=== PATIENT | female | born 1950 | race Two or more races ===

== ENCOUNTER 2025-04-12 17:26 | Emergency (ER) | payer MEDICAID, MEDICARE, OTHER ==
[~2025-04-12] VITALS: Ht 152.4 cm; Wt 75.5 kg
[2025-04-12 18:29] LABS: Hemoglobin 7.9 g/dL (12.2-16.2); Mean Corpuscular Hemoglobin 30.6 pg (28.0-32.0)
[2025-04-12 18:32] LABS: Hematocrit 24.2 % (36.0-46.0); Mean Corpuscular Volume 93.4 fL (80.0-100.0); Nucleated Red Blood Cells % 0.2 %
[2025-04-12 18:42] LABS: Alanine Aminotransferase 15 U/L (7-40); Albumin 4.4 g/dL (3.2-4.8); Alkaline Phosphatase 69 U/L (46-116); Anion Gap 11 (5-15); BUN/Creatinine Ratio 20.6 (10.0-20.0); Calcium 9.6 mg/dL (8.7-10.4); Potassium 4.7 mmol/L (3.5-5.1); Total Protein 7.1 g/dL (5.7-8.2)
[2025-04-12 18:46] LABS: INR 0.99 (0.9-1.15); Partial Thromboplastin Time 25.6 SEC (24.5-34.5); Prothrombin Time 10.5 sec (9.3-11.8)
[2025-04-12 18:47] LABS: Bilirubin, Total 0.3 mg/dL (0.2-1.0); Blood Urea Nitrogen 35 mg/dL (9-23); Carbon Dioxide 31 mmol/L (20-31); Chloride 90 mmol/L (98-107); Sodium 132 mmol/L (136-145)
[2025-04-12 18:48] LABS: Glucose 429 mg/dL (74-106)
--- NOTE | 2025-04-12 19:09 | ED.PDOC ---
Eye-HPI HPI Comments HPI: Poor Historian. 74-YEAR-OLD FEMALE BROUGHT IN TO THE HOSPITAL FOR EVALUATION OF RIGHT NOSTRIL BLEED since this past Friday.. PATIENT HAS BEEN SEEN AND EVALUATED FOR THIS proximally 2-3 weeks ago at a different hospital in [facility]. Patient is visiting from [place]. She has no PCP locally. Patient's bleeding has stopped. The patient is not on blood thinners. Patient family states she already had a CT scan of her head which found some sinus findings and was referred to ENT. Patient is scheduled to see the doctor in May. Patient was seen at [facility] in [facility]. Past Medical History: Hypertension, diabetes, hyperlipidemia. Past Surgical History: Hysterectomy REVIEW OF SYSTEMS: CONSTITUTIONAL: Denies acute: fever, diaphoresis, chills, generalized weakness. HEAD: Denies acute: photophobia Eyes: Denies acute: Double vision, vision loss, eye pain, eye discharge. EARS: Denies acute: tinnitus, hearing loss, ear discharge, ear pain, THROAT: Denies acute: sore throat, swelling, difficulty swallowing , pain with swallowing, change in voice. NECK: Denies acute: neck pain, neck swelling, stiff neck. HEART: Denies acute : chest pain, palpitations, LUNGS: Denies acute: SOB, wheezing, cough, hemoptysis ABDOMEN: Denies acute: abdominal pain, Nausea, Vomiting, diarrhea, melena , hematemesis, hematochezia SKIN: Denies acute: rash, redness, lesions, itchiness. EXTREMITIES: Denies acute: calf pain, numbness, tingling, weakness, denies pain in extremity. Denies acute: Low back pain. Neuro: Denies acute: focal neurological deficit, motor or sensory focal neurological deficit, tremors, seizure like activity, confusion, dizziness, change in mental status, loss of bowel or bladder function, cauda equina like symptoms. : Denies acute: dysuria, hematuria, flank pain, increase in urinary frequency. PSYCH: Denies acute: hallucination, suicidal ideation, homicidal ideation. FEMALE: Denies acute: abnormal vaginal bleeding, foul odor, unusual discharge. PHYSICAL EXAM: General: ---no-----acute distress, awake and alert. Head: normocephalic, atraumatic. No raccoon's eyes, no nixon sign. Neck: supple, trachea is midline, no swelling. Throat: Normal phonation. No evidence of bleeding the posterior pharynx. No active bleeding in the nose. Eyes:, no erythema, no purulent discharge, no proptosis, no icterus. Heart: regular rate, regular rhythm, no significant murmur appreciated. Lungs: no apparent respiratory distress, Able to speak in full sentences. No wheezing, no rhonchi, no crackles. No stridors Clear to auscultation bilaterally. Abdomen: non tender to palpation, non distended, soft, no guarding, no rebound, + bowel sounds. Neuro: Awake, Alert, oriented to name, self, situation, follows commands GCS=15. Speech is normal. Skin: no petechia, no purpura, no cyanosis, non-pale, not jaundice. Lower extremities: --no - Pitting edema no deformity, no focal swelling, no calf TTP. Makes eye contact. moves all four extremities. Face: no apparent facial droop. ED COURSE: DISCLAIMER: This medical document was created using an electronic medical record system with voice recognition software and computerized dictation system. Although this document has been carefully reviewed, there might still be some phonetic and typographical errors. Occasional wrong-word or "sound-alike" substitutions may have occurred due to the inherent limitations of voice recognition software. These areas are purely typographical due to imperfections of the software programs and do not reflect any compromise in the patient's medical care. Please read the chart carefully and recognize, using context, where these substitutions have occurred. Chief Complaint: Nose Bleed Time Seen by MD: 17:44 Reviewed Notes: Allergies Allergies: Coded Allergies: NO KNOWN ALLERGIES (Unverified , 04/12/25) Information Source: Patient, Relative Mode of Arrival: Ambulatory X-Ray, Labs, Meds, VS Vital Signs Date Time Temp Pulse Resp B/P (MAP) Pulse Ox O2 Delivery O2 Flow Rate FiO2 04/12/25 20:22 70 22 96 Room Air* 0 21 04/12/25 20:15 98.3 70 18 120/48 (72) 96 98.3 04/12/25 19:32 148/38 04/12/25 19:08 18 94 Room Air 0 04/12/25 19:03 98.4 73 20 148/38 (74) 94 98.4 04/12/25 17:36 98.3 79 16 163/77 92 98.3 Lab Test 04/12/25 20:30 04/12/25 19:24 04/12/25 19:17 04/12/25 18:08 Range/Units Hemoglobin Pending 7.9 L 12.2-16.2 g/dL Hematocrit Pending 24.2 L 36.0-46.0 % POC Glucose 407 *H 70-106 mg/dl Troponin I High Sensitivity 5 5 </=34 ng/L White Blood Count 8.0 4.4-10.8 10^3/uL Red Blood Count 2.59 L 4.0-5.20 10^6/uL Mean Corpuscular Volume 93.4 80.0-100.0 fL Mean Corpuscular Hemoglobin 30.6 28.0-32.0 pg Mean Corpuscular Hemoglobin Concent 32.8 32.0-36.0 g/dL Red Cell Distribution Width 14.8 H 11.8-14.3 % Platelet Count 335 140-450 10^3/uL Mean Platelet Volume 9.2 6.9-10.8 fL Neutrophils (%) (Auto) 66.5 37.0-80.0 % Lymphocytes (%) (Auto) 25.1 10.0-50.0 % Monocytes (%) (Auto) 4.9 0.0-12.0 % Eosinophils (%) (Auto) 2.5 0.0-7.0 % Basophils (%) (Auto) 1.0 0.0-2.0 % Neutrophils # (Auto) 5.3 1.6-8.6 10 ^3/uL Lymphocytes # (Auto) 2.0 0.4-5.4 10 ^3/uL Monocytes # (Auto) 0.4 0-1.3 10 ^3/uL Eosinophils # (Auto) 0.2 0-0.8 10 ^3/uL Basophils # (Auto) 0.1 0-0.2 10 ^3/uL Nucleated Red Blood Cells 0.2 % Prothrombin Time 10.5 9.3-11.8 sec Prothrombin Time INR 0.99 0.9-1.15 Activated Partial Thromboplast Time 25.6 24.5-34.5 SEC Sodium Level 132 L 136-145 mmol/L Potassium Level 4.7 3.5-5.1 mmol/L Chloride Level 90 L 98-107 mmol/L Carbon Dioxide Level 31 20-31 mmol/L Anion Gap 11 5-15 Blood Urea Nitrogen 35 H 9-23 mg/dL Creatinine 1.70 H 0.550-1.02 mg/dL Glomerular Filtration Rate Calc 31 >90 mL/min BUN/Creatinine Ratio 20.6 H 10.0-20.0 Serum Glucose 429 *H 74-106 mg/dL Calcium Level 9.6 8.7-10.4 mg/dL Total Bilirubin 0.3 0.2-1.0 mg/dL Aspartate Amino Transferase (AST) 21 13-40 U/L Alanine Aminotransferase (ALT) 15 7-40 U/L Alkaline Phosphatase 69 46-116 U/L Total Protein 7.1 5.7-8.2 g/dL Albumin 4.4 3.2-4.8 g/dL Current Medications Medications (Trade) Dose Ordered Sig/Cesar Route Start Time Stop Time Status Last Admin Insulin Human Regular (InsuLIN R) 5 units ONCE ONCE IV 04/12/25 19:15 04/12/25 19:17 DC 04/12/25 19:32 Sodium Chloride 1,000 ml @ 1,000 mls/hr Q1H ONCE IV 04/12/25 19:15 04/12/25 20:14 DC 04/12/25 19:33 Departure 1 Departure Impression: Primary Impression: Nosebleed Additional Impressions: Anemia Hyperglycemia due to diabetes mellitus Disposition: 01 HOME / SELF CARE / HOMELESS Condition: Stable Additional Instructions: Additional instructions: Please read all instructions provided in this packet carefully. You MUST follow-up with your primary care/family doctor in 1 to 2 days. If you are unable to see your primary care/family doctor, please return to our emergency room for re-assessment and re-evaluation in 1 to 2 days. Return to the emergency room here in our facility or to the nearest ER [facility] if your symptoms change or worsen. CONSULTATIONS: you MUST Follow-up for consultation as soon as possible with: -ENT doctor in 1-2 days. Please call for appointment. You MUST call the consultants office yourself to make an appointment. You may need to arrange that through your insurance and/or your primary/family doctor. If you are unable to see the customer care voice consultant in 1 to 2 days, you must return to our emergency room (or any other ER of your choice) for re-assessment and re- evaluation. Adequate fluid hydration. Although you have been discharged from the Emergency Department, this does not mean that you have a "clean bill of health". No definitive diagnosis for your symptoms has been made today. It is possible that you are in the process of developing a serious illness. This is why you must return to the ED without fail if any new or worsening symptoms develop. Monitoring blood pressure at home at least 3 times a day. Monitoring blood sugar at home at least 3 times a day. Take daily iron supplements because you are anemic. Discharged With: Self KATIE HUSSEIN DO Apr 12, 2025 19:09
[2025-04-12] MEDS: InsuLIN REG 1unit/0.01ml Soln (100units/ml) IV ONE (19:32)
[2025-04-12] MEDS: hydrALAZINE HCL 20 MG/ML VL IV ONE (19:32)
[2025-04-12] MEDS: SODIUM CHLORIDE 0.9% 1,000 ML IV ONE (19:33)
[2025-04-12 20:15] VITALS: TEMP 98.3
[2025-04-12 20:22] VITALS: PULSE 70; RESP 22; O2SAT 96
[2025-04-12 20:59] LABS: Hemoglobin 7.6 g/dL (12.2-16.2)
[2025-04-12 21:01] LABS: Hematocrit 23.2 % (36.0-46.0)
[2025-04-12 21:50] VITALS: BP 105/47; PULSE 69; RESP 12; O2SAT 90
== END 2025-04-12 22:00 | disposition home or self-care (01) ==
LOC: ER 17:26
DX: D64.9 Anemia, unspecified (principal); R04.0 Epistaxis; E11.65 Type 2 diabetes mellitus with hyperglycemia; I10 Essential (primary) hypertension; E78.5 Hyperlipidemia, unspecified; Z90.710 Acquired absence of both cervix and uterus
CPT/HCPCS: 36415; 80053; 82947; 84484; 85014; 85018; 85025; 85610; 85730; 96361; 96374; 99283; J1815; J7030; 82962